=== PATIENT | male | born 1945 | race Native Hawaiian/Other Pacific Islander ===

== ENCOUNTER 2021-07-13 18:06 | Emergency (ER) | payer OTHER, BC ==
[~2021-07-13] VITALS: Ht 188 cm; Wt 71.2 kg
[2021-07-13 18:16] VITALS: TEMP 98.1
[2021-07-13 18:40] LABS: PLATELET COUNT 198 K/uL (142-355)
[2021-07-13 18:56] LABS: POTASSIUM 1.7 mmol/L (3.6-5.2)
[2021-07-13 21:20] VITALS: BP 158/92
== END 2021-07-13 21:20 | disposition home or self-care (01) ==
LOC: ED 18:06
PROVIDERS: Hospitalist
DX: E87.6 Hypokalemia (principal); E83.42 Hypomagnesemia
CPT/HCPCS: 36415; 80053; 83735; 85027; 93005; 96360; 96365; 96366; 99284

== ENCOUNTER 2022-05-18 10:04 | Outpatient (CLI) | payer OTHER, BC | END 2022-05-18 19:00 | disposition home or self-care (01) | LOC: RESP 10:04 | PROVIDERS: ATTEND Specialist | DX: I10 Essential (primary) hypertension (principal); R42 Dizziness and giddiness; R53.83 Other fatigue; E78.2 Mixed hyperlipidemia; I95.1 Orthostatic hypotension; R94.31 Abnormal electrocardiogram [ECG] [EKG] ==